=== PATIENT | male | born 1960 | race Caucasian/White ===

== ENCOUNTER → 2017-07-27 11:46 | Outpatient (CLI) | payer OTHER, SELFPAY | PROVIDERS: PCP Family Medicine; Visit Provider Family Medicine | DX: R06.83 Snoring (principal); I10 Essential (primary) hypertension; R53.83 Other fatigue; E66.9 Obesity, unspecified | CPT/HCPCS: 95806 ==

== ENCOUNTER → 2021-05-22 08:30 | Outpatient (CLI) | payer BC, SELFPAY ==
[2021-05-22 10:05] LABS: Basophils # 0.1 K/mm3 (0-0.2); Basophils % 1.4 % (0.1-2.0); Eosinophils # 0.4 K/mm3 (0.0-0.4); Hematocrit 49.1 % (42.0-52.0); Hemoglobin 16.5 g/dL (14.1-18.0); Lymphocytes # 1.7 K/mm3 (0.7-4.5); Mean Corpuscular HGB Conc 33.7 g/dL (31.8-35.4); Mean Corpuscular Hemoglobin 31.1 pg (27.0-31.2); Mean Corpuscular Volume 92.3 fl (80-94); Mean Platelet Volume 7.6 fl (7.4-10.4); Monocytes # 0.7 K/mm3 (0.1-1.0); Monocytes % 9.9 % (1.7-9.3); Neutrophils # 4.4 K/mm3 (1.8-7.8); Neutrophils % 60.6 % (37.0-80.0); Platelet Count 367 K/mm3 (142-424); Red Blood Count 5.32 M/mm3 (4.60-6.20); Red Cell Distribution Width 13.1 % (11.5-17.5); White Blood Count 7.3 K/mm3 (4.8-10.8)
[2021-05-22 10:06] LABS: Chloride 99 mmol/L (98-107); Sodium 135 mmol/L (136-145)
[2021-05-22 10:07] LABS: Potassium 4.6 mmoL/L (3.5-5.1)
[2021-05-22 10:09] LABS: Alanine Aminotransferase 31 U/L (12-78); Albumin Level 4.6 g/dl (3.5-5.0); Albumin/Globulin Ratio 1.8 (1.1-1.8); Alkaline Phosphatase 57 U/L (38-126); Anion Gap 10.6 mEq/L (5-15); Aspartate Amino Transferase 31 U/L (17-59); Bilirubin,Total 0.7 mg/dl (0.2-1.3); Blood Urea Nitrogen 12 mg/dl (9-20); Carbon Dioxide 30 mmol/L (22.0-30.0); Cholesterol 193 mg/dl (140-200); Estimated Glomerular Filt Rate 99 ml/min (>60); GFR (African American) 120 ML/MIN (>60); Globulin 2.6 g/dL (1.3-3.2); Total Protein,Serum 7.2 g/dl (6.3-8.2); Triglycerides 192 mg/dl (30-150); VLDL Cholesterol 38 mg/dL (0-40)
[2021-05-22 10:10] LABS: Calcium 8.8 mg/dl (8.4-10.2); Chol/HDL Ratio 6.4 (1-3.5); Glucose 93 mg/dl (74-100); HDL Cholesterol 30 mg/dl (40-60)
[2021-05-22 10:21] LABS: Direct LDL Cholesterol 125.25 mg/dL (100-129)
[2021-05-22 10:40] LABS: Thyroid Stimulating Hormone 0.37 uIU/mL (0.465-4.68)
== END ==
PROVIDERS: PCP Family Medicine; Referring Provider Family Medicine; Visit Provider Family Medicine
DX: I10 Essential (primary) hypertension (principal); E78.2 Mixed hyperlipidemia
CPT/HCPCS: 36415; 80053; 80061; 84443; 85025

== ENCOUNTER → 2021-06-19 07:59 | Outpatient (CLI) | payer BC, SELFPAY ==
[2021-06-19 08:35] LABS: Basophils # 0.1 K/mm3 (0-0.2); Basophils % 1.4 % (0.1-2.0); Eosinophils # 0.2 K/mm3 (0.0-0.4); Eosinophils % 3.2 % (0.1-12.0); Hematocrit 51.2 % (42.0-52.0); Hemoglobin 16.4 g/dL (14.1-18.0); Lymphocytes # 1.7 K/mm3 (0.7-4.5); Lymphocytes % 22.5 % (10-50); Mean Corpuscular Hemoglobin 30.8 pg (27.0-31.2); Mean Corpuscular Volume 96.1 fl (80-94); Mean Platelet Volume 7.7 fl (7.4-10.4); Monocytes # 0.5 K/mm3 (0.1-1.0); Monocytes % 6.6 % (1.7-9.3); Neutrophils # 4.9 K/mm3 (1.8-7.8); Neutrophils % 66.3 % (37.0-80.0); Platelet Count 355 K/mm3 (142-424); Red Blood Count 5.32 M/mm3 (4.60-6.20); Red Cell Distribution Width 13.5 % (11.5-17.5); White Blood Count 7.3 K/mm3 (4.8-10.8)
[2021-06-19 11:29] LABS: Anion Gap 12.5 mEq/L (5-15); Blood Urea Nitrogen 11 mg/dl (9-20); Calcium 9.1 mg/dl (8.4-10.2); Carbon Dioxide 28 mmol/L (22.0-30.0); Chloride 103 mmol/L (98-107); Estimated Glomerular Filt Rate 99 ml/min (>60); GFR (African American) 120 ML/MIN (>60); Glucose 98 mg/dl (74-100); Potassium 4.5 mmoL/L (3.5-5.1); Sodium 139 mmol/L (136-145)
== END ==
PROVIDERS: Visit Provider Surgery
DX: Z01.812 Encounter for preprocedural laboratory examination (principal); Z11.52 Encounter for screening for COVID-19; K40.90 Unilateral inguinal hernia, without obstruction or gangrene, not specified as recurrent
CPT/HCPCS: 36415; 80048; 85025; C9803; U0003; U0005

== ENCOUNTER 2021-06-21 07:42 | Day surgery (SDC) | payer BC, SELFPAY ==
[2021-06-17 10:11] VITALS: BMI 30.7
[2021-06-21] VITALS (10 sets, daily range): BP systolic 102–142; BP diastolic 55–90; PULSE 64–92; RESP 16–18; TEMP 36.4–43; O2SAT 92–99
--- NOTE | 2021-06-21 09:09 | HMH.ANESCL ---
[facility] Anesthesia Checklist - Patient Identification Patient Identification: Arm Band, Verbal (Name & ) - Structural Data Admitted From: Home Planned Operative Procedure/s: Left Inguinal Hernia Repair Consent for Planned Operative Procedure(s) Verified: Yes Verified Documents: Surgical Consent - NPO Status Verified Time NPO: 00:00 - Chart Verification Results Verified: CBC, BMP - Additional verifications Anesthesia Reactions: No Hx Blood Transfusions: No Blood Transfusion Reaction: No - Airway Assessment C-Spine Mobility Assessed: Yes TMJ Mobility Assessed: Yes Dentition: Edentulous - Neurological Assessment Level of Consciousness: Awake, Alert, Appropriate - Anesthesia Plan Anesthesia Risk discussed: Yes ASA Class: II Anesthesia Type: General [facility] History I have reviewed the patient's past medical history: Yes Medical History: Reports:: Hyperlipidemia Denies:: Cancer, Diabetes Mellitus Type 1, Diabetes Mellitus Type 2, Internal Pacemaker, MRSA, Seizures *Have you ever received a pneumonia vaccine?: No *Have you received a flu vaccine this season?: Yes Other Medical History: Denies: Blood Transfusion Reaction Anesthesia experience/problems:: no issues Other Surgeries: Yes: Other. No: Pacemaker Amputation: No Fractures: No - *Social History Last grade of school completed: GED Smoking Status: Never smoker Alcohol Intake: never Alcohol Intake Frequency:: holidays/special occasions only Substance Use Type: denies use *Occupational Status:: employed Housing: house *Travel in the last 8 weeks: None Family Hx:: Diabetes, Heart Attack, Stroke
--- NOTE | 2021-06-21 12:16 | HMH.OPNOTE ---
Date of procedure: 06/21/21 Pre-op Diagnosis:: Left inguinal hernia Post-op Diagnosis:: Same Procedure performed:: Open repair of left inguinal hernia with placement of large sized Bard prefix mesh plug with onlay mesh Surgeon:: New Martin MD PEANUT CLEANER:: Thai Sahu Anesthesia: GETA Estimated blood loss (mL): 10 Clinical Note:: Patient is a 61-year-old male referred by Dr. Crandall for left inguinal hernia. Patient does state that he had previous hernia repair by Dr. Medina years ago and initially felt that this was on the left side. Patient states that over the past year he has had some discomfort in the left groin area. It is bothersome to him particularly when sneezing or straining. He does have pain when he is standing on his feet at work for long period of time. He does work at [employer]. He often has to sit down. He has to massage the area to reduce it. He was found to have an obvious reducible left inguinal hernia. I did review his previous operative note and he had an open right inguinal hernia repair years ago by Dr. Medina. Options were discussed with the patient. Plan was for open left inguinal hernia repair. Operative findings:: He had a moderate sized indirect hernia with herniated preperitoneal fat along the cord from the internal ring as well as a small hernia sac. Operative note:: Patient was taken to the operating room. He was given preoperative intravenous antibiotics. In the operating room he was placed in a supine position. General anesthesia was induced. Dalal catheter was placed. Lower abdomen and perineum were prepped and draped in the standard surgical fashion. Landmarks were identified. Oblique incision was made in the left inguinal area above landmarks identifying the inguinal ligament. Dissection was carried down to subcutaneous tissues and Nishant's fascia using electrocautery. External oblique muscle was cleaned free. External oblique muscle was opened along the length of its fibers. Ilioinguinal nerve was protected and preserved. Cord structures were dissected free from the floor of the inguinal canal and encircled with a Abdi drain. Dissection was carried out of the cord. There was a indirect hernia with herniated preperitoneal fat along the cord. This was able to be dissected free and some of it was excised but remainder was reduced. There was a hernia sac. This was dissected free from the cord and able to be reduced. Large sized Bard prefix mesh plug was inserted into the region lateral to the external ring at the site of the defect. This was secured to the shelving edge of the inguinal ligament and to external oblique muscle with several interrupted 2-0 PDS sutures. Onlay mesh was then sewn in position securing it to Carmine's ligament and along the shelving edge of the inguinal ligament with a running 2-0 PDS. It was secured superomedially to transversalis fascia with several interrupted 2-0 PDS horizontal mattress sutures. Cord structures were returned to normal anatomic position. The 2 tails of the mesh were used to encircle the cord structures and sutured 1 another several interrupted 2-0 PDS sutures to reconstruct the internal ring. Cord structures and ilioinguinal nerve were returned to normal position. Irrigation was performed. Local anesthetic was infiltrated into the deep tissues and then superficially as well as for an inguinal nerve block. There was good hemostasis. External oblique muscle was closed over the cord structures and nerve with a running 2-0 Vicryl suture. Nishant's fascia was closed with running 2-0 Vicryl. Skin was closed with running 3-0 Stratafix. Steri-Strips and dressings were applied. Condition: stable Disposition: PACU Complications:: None immediately apparent
--- NOTE | 2021-06-21 12:21 | P.PN_ITS ---
[facility] Anesthesia Record Part I Intake, IV Amount: 1,300 Estimated blood loss (mL): 10 Urine output (mL): 100 Blood Pressure: 113/68 SaO2: 92 Pulse Rate: 70 Respiratory Rate: 16 Temperature: 99.1 F Patient is:: Drowsy, Stable Stable to PACU at:: 12:20
--- NOTE | 2021-06-21 12:52 | PC.NURSE ---
1240-detailed report called to JOSE Bennett [id number]-pt transported to post op via stretcher w/subha rails up and left in care of JOSE Bennett,bed locked in lowest position, vss, pt stable
--- NOTE | 2021-06-21 13:58 | HMH.ANESII ---
[facility] Anesthesia Record Part II Discharge Time: 12:50 Destination: Surgical Day Care (OP Surgery) PACU nurse assessment reviewed?: Yes Patient Condition:: Good Anesthesia Complications:: None Swallowing reflex intact?: Yes Cyanosis?: No Blood Pressure: 111/65 Pulse Rate: 67 Temperature: 97.6 F Mental Status: Alert & Oriented Pain level:: 0 Nausea and/or vomitting:: None Intake, IV Amount: 0
[2021-06-21 15:41] LABS: Microscopic,Cath URINE MICROSCOPIC (MICROSCOPIC)
[2021-06-21 18:55] LABS: Appearance,Urine/Cath CLOUDY (Clear); Bilirubin,Cath Negative (Negative); Blood, Urine/Cath Negative (Negative); Color,Urine/Cath YELLOW (Yellow); Glucose,Urine/Cath (UA) Negative (Negative); Ketones,Urine/Cath Negative (Negative); Leukocyte Esterase,Cath Negative (Negative); Nitrate,Cath Negative (Negative); Protein,Urine/Cath Negative (Negative); Specific Gravity, Urine/Cath >= 1.030 (1.005-1.030); Urobilinogen,Cath 0.2 EU/dl (0.2)
[2021-06-21 21:07] LABS: Bacteria,Urine/Cath 4+ /lpf
== END 2021-06-21 13:25 | disposition home or self-care (01) ==
LOC: OR 07:45
PROVIDERS: PCP Family Medicine; Visit Provider Surgery
PROC: (CPT 49507; principal; 2021-06-21 09:30)
DX: K40.30 Unilateral inguinal hernia, with obstruction, without gangrene, not specified as recurrent (principal); E78.5 Hyperlipidemia, unspecified
CPT/HCPCS: 49507; 81001; 87086; 96374; J2405; J2710

== ENCOUNTER → 2021-11-06 08:06 | Outpatient (CLI) | payer BC, SELFPAY ==
[2021-11-06 09:33] LABS: Alanine Aminotransferase 32 U/L (12-78); Albumin Level 4.3 g/dl (3.5-5.0); Albumin/Globulin Ratio 1.6 (1.1-1.8); Alkaline Phosphatase 65 U/L (38-126); Anion Gap 12.5 mEq/L (5-15); Aspartate Amino Transferase 30 U/L (17-59); Bilirubin,Total 0.6 mg/dl (0.2-1.3); Blood Urea Nitrogen 14 mg/dl (9-20); Calcium 9.2 mg/dl (8.4-10.2); Carbon Dioxide 28 mmol/L (22.0-30.0); Chloride 103 mmol/L (98-107); Chol/HDL Ratio 6.6 (1-3.5); Cholesterol 212 mg/dl (140-200); Estimated Glomerular Filt Rate 115 ml/min (>60); GFR (African American) 140 ML/MIN (>60); Globulin 2.7 g/dL (1.3-3.2); Glucose 92 mg/dl (74-100); HDL Cholesterol 32 mg/dl (40-60); Potassium 4.5 mmoL/L (3.5-5.1); Sodium 139 mmol/L (136-145); Triglycerides 157 mg/dl (30-150); VLDL Cholesterol 31 mg/dL (0-40)
[2021-11-06 09:50] LABS: 25-OH Vitamin D, Total 79.6 ng/mL (30-100)
[2021-11-06 09:52] LABS: Free T4 (Free Thyroxine) 0.88 ng/dl (0.78-2.19)
[2021-11-06 10:05] LABS: Thyroid Stimulating Hormone 0.35 uIU/mL (0.465-4.68)
[2021-11-07 10:07] LABS: Direct LDL Cholesterol 136 mg/dL (100-129)
== END ==
PROVIDERS: PCP Family Medicine; Visit Provider Family Medicine
DX: I10 Essential (primary) hypertension (principal); E78.2 Mixed hyperlipidemia; E55.9 Vitamin D deficiency, unspecified; R79.89 Other specified abnormal findings of blood chemistry
CPT/HCPCS: 36415; 80053; 80061; 82306; 84439; 84443

== ENCOUNTER → 2021-12-06 16:46 | Outpatient (CLI) | payer BC, SELFPAY | PROVIDERS: PCP Family Medicine; Visit Provider Surgery | DX: Z01.812 Encounter for preprocedural laboratory examination (principal); Z20.822 Contact with and (suspected) exposure to COVID-19; Z12.11 Encounter for screening for malignant neoplasm of colon | CPT/HCPCS: C9803; U0003; U0005 ==

== ENCOUNTER 2021-12-10 10:16 | Day surgery (SDC) | payer BC, SELFPAY ==
[2021-12-09 08:38] VITALS: BMI 30.8
[2021-12-10 10:48] VITALS: BP 136/80; PULSE 73; RESP 16; TEMP 36.7; O2SAT 99
--- NOTE | 2021-12-10 10:58 | EXP.ANES.CKL ---
[facility] Medical History (Updated 12/09/21 @ 08:35 by Michelle Sousa RN) History of inguinal hernia History of snoring Hypertension Surgical History (Updated 12/09/21 @ 08:35 by Michelle Sousa RN) History of esophagogastroduodenoscopy (EGD) Family History (Updated 12/09/21 @ 08:36 by Michelle Sousa RN) Other Family history of diabetes mellitus type II Family history of hypertension Family history of stroke Social History (Updated 12/09/21 @ 08:37 by Michelle Sousa RN) Smoking Status: Never smoker alcohol intake: never substance use type: denies use current occupational status: employed Travel in the last 8 weeks: None housing: house current occupation: bri caffeine: Yes [facility] Anesthesia Checklist Patient Identification Patient Identification: Arm Band Structural Data Admitted From: Home Planned Operative Procedure/s: Colonoscopy Consent for Planned Operative Procedure(s) Verified: Yes Verified Documents: Surgical Consent and History and Physical NPO Status Verified Time NPO: 00:00 Additional verifications Anesthesia Reactions: No Hx Blood Transfusions: No Blood Transfusion Reaction: No Airway Assessment C-Spine Mobility Assessed: Yes TMJ Mobility Assessed: Yes Dentition: Edentulous Neurological Assessment Level of Consciousness: Awake and Alert Anesthesia Plan Anesthesia Risk discussed: Yes Anesthesia Plan: Verified ASA Class: II Anesthesia Type: MAC
[2021-12-10 12:19] VITALS: O2SAT 97
--- NOTE | 2021-12-10 12:59 | HMH.SCOPE ---
Procedure: Date: 12/10/21 Patient Date of :: 1960 Procedure Performed:: Total colonoscopy to terminal ileum with polypectomy Indications:: Patient is a pleasant 61-year-old male who I had previously seen for hernia. He was scheduled for initial screening colonoscopy. Performing Provider:: New Martin MD Referring Provider:: Rogers Crandall MD Sedation:: MAC sedation Procedure:: Patient was taken to endoscopy procedure room. He was positioned in lateral decubitus position. Adequate intravenous sedation was achieved with anesthesia titration of propofol. Variable stiffness Olympus colonoscope was inserted via the anus. Is advanced to the cecum. Ileocecal valve and appendiceal orifice were clearly identified. Colonoscope was advanced a short distance into the terminal ileum which appeared grossly normal. Colonoscope was slowly withdrawn through the colon with careful surveillance. At the hepatic flexure there were several tiny diminutive polyps removed with cold snare. Within the transverse colon there were 3 small polyps removed with cold snare. In the sigmoid colon there was a small polyp removed with cold snare. He had some minimal sigmoid diverticulosis. Retroflexion within the rectum revealed minimal internal hemorrhoids. Colonoscope was withdrawn. Findings:: Rare sigmoid diverticulosis Minimal internal hemorrhoids Polyps as noted above (total of 7 small polyps removed) Recommendations:: Repeat colonoscopy pending pathology Complications:: None immediately apparent Estimated blood obtained (mL): 2
[2021-12-10 13:06] VITALS: BP 119/70; PULSE 72; RESP 18; TEMP 36.4; O2SAT 97
[2021-12-10 13:16] VITALS: BP 120/77; PULSE 65; RESP 18; TEMP 36.4; O2SAT 98
[2021-12-10 13:26] VITALS: BP 124/79; PULSE 65; RESP 18; TEMP 36.4; O2SAT 99
[2021-12-10 13:45] VITALS: BP 122/90; PULSE 64; RESP 18; TEMP 36.4; O2SAT 99
== END 2021-12-10 13:45 | disposition home or self-care (01) ==
PROVIDERS: PCP Family Medicine; Visit Provider Surgery
PROC: 0DJD8ZZ Inspection of Lower Intestinal Tract, Via Natural or Artificial Opening Endoscopic (ICD-10-PCS; CPT 45385; principal; 2021-12-10 11:30)
DX: Z12.11 Encounter for screening for malignant neoplasm of colon (principal); D12.6 Benign neoplasm of colon, unspecified; Z86.010 Personal history of colon polyps; Z79.899 Other long term (current) drug therapy
CPT/HCPCS: 45385; J2704

== ENCOUNTER 2025-02-03 12:09 | Day surgery (SDC) | payer BC, SELFPAY ==
[2025-01-29 09:23] VITALS: BMI 30.2
--- NOTE | 2025-01-31 15:46 | P.HP_ITS ---
History of Present Illness *Admission Date: 02/03/25 *History of present illness: Mr. Pelletier is a 64-year-old gentleman who is here for screening/surveillance colonoscopy secondary to a personal history of adenomatous colon polyps. The patient did have an initial colonoscopy in November 2021 and had 7 polyps (tu bular adenomas x 7) removed (New Martin MD). The examination is deemed medically necessary for screening/surveillance colonoscopy. The patient has been seen, interviewed and examined prior to the procedure by both myself and the anesthesia provider. [facility] Disclaimer: The information contained in this section may have been updated after the patient was seen, as this information can be updated by other users. 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 Have you lived/traveled outside US in past 30 days?: No Contact w/someone who lives/traveled outside US past 30 days?: No Exposure to someone with infectious disease in past 14 days?: No Do you have a fever (greater than 100.4 F or 38 C)?: No Have you tested positive for COVID-19?: No Exposed to someone with COVID-19 in past 14 days?: No Do you have a sore throat?: No Do you have a cough?: No Do you have any weakness?: No Are you experiencing any nausea/vomitting?: No Do you have any diarrhea?: No Are you experiencing any unusual bleeding?: No Do you have any muscle aches/pain?: No Do you have any abdominal pain?: No Are you experiencing loss of taste or smell?: No Other Medical History Have you received the Flu Vaccine for this season: Yes Have you received the Pneumonia Vaccine: No Review of Systems Review of Systems Review of systems (narrative): Negative *Cardiovascular Comments: Negative *Gastrointestinal Comments: Negative *Genitourinary Comments: Negative *Musculoskeletal Comments: Negative *Neurologic Comments: Negative Meds Home Medications and Allergies Home Medications ?Medication ?Instructions ?Recorded ?Confirmed ?Type cholecalciferol (vitamin D3) 25 25 mcg PO DAILY Supple ment 06/08/21 02/03/25 History mcg (1,000 unit) capsule hydrochlorothiazide 12.5 mg tablet 12.5 mg PO DAILY Fl uid 06/08/21 02/03/25 History losartan 100 mg tablet 100 mg PO DAILY bp 06/08/21 02/03/25 History multivitamin-ferrous 1 tab PO DAILY Supplement 02/03/25 History fumarate-folic acid 18 mg-400 mcg tablet (Centrum) New Prescriptions to Start Prescriptions: Allergies Allergy/AdvReac Type Severity Reaction Status Date / Time cephalexin (From Keflex) Allergy Unknown Unknown Verified 02/03/25 12:24 allergy reaction Penicillins Allergy Unknown Unknown Verified 02/03/25 12:24 allergy reaction Exam Data for Last 24 hours I & O for Last 24 hours: Intake & Output 01/28/25 01/29/25 01/30/25 01/31/25 23:59 23:59 23:59 23:59 Weight 205 lb *Routine HEENT Exam Head: Present normocephalic Eye: Present EOMI and PERRL ENT: Present mucous membranes moist *Routine Neck Exam Neck: Present supple *Routine Respiratory Exam Respiratory: Present CTA bilaterally *Routine Cardiovascular Exam Cardiovascular: Present RRR *Routine Abdominal Exam Abdominal: Present soft and normoactive bowel sounds; Absent tenderness *Routine Rectal Exam Rectal:: deferred *Routine Genitalia Exam Genitalia:: deferred *Routine Extremities Exam Extremities: Absent cyanosis, clubbing or edema *Routine Skin Exam Skin: Present warm; Absent rash *Routine Neurological Exam Neurological: Present alert and oriented X3 Assessment and Plan *Assessment and plan (1) Personal history of adenomatous and serrated colon polyps: Status: Acute Category: Medical Code(s): Z86.0101 - Personal history of adenomatous and serrated colon polyps (2) Screening for colon cancer: Status: Acute Category: Medical Code(s): Z12.11 - Encounter for screening for malignant neoplasm of colon Plan A/P: 1. Personal history of adenomatous colon polyps is the preprocedural diagnosis. The patient will be anesthetized/sedated using MAC sedation. The patient has been seen and examined. Cardiac and lung assessment prior to the examination is stable. Proceed with planned screening for colon cancer/screening colonoscopy.
--- NOTE | 2025-02-03 07:05 | HMH.PROCNOTE ---
[facility] Procedure Note Date: 02/03/25 Time: 13:41 Procedure Note:: Colonoscopy Procedure Report: Colonoscopy with cold snare polypectomy Endoscopist: Topher Wade II, MD Referring physician: Rogers Crandall MD Date of Procedure: February 03, 2025 Equipment: Olympus [id number] adult colonoscope Sedation: MAC sedation Indication: Mr. Pelletier is a 64-year-old gentleman who is here for screening/surveillance colonoscopy secondary to a personal history of adenomatous colon polyps. The patient did have an initial colonoscopy in November 2021 and had 7 polyps (tubular adenomas x 7) removed (New Martin MD). The patient reports no abdominal pain, weight loss, change in his bowel habits or rectal bleeding. He reports no family history of colon cancer. He does sometimes get loose bowel movements if he eats or drinks dairy products. The examination is deemed medically necessary for screening/surveillance colonoscopy. Procedure: Prior to the procedure, a history and physical exam was performed, and patient's medications and allergies were reviewed. The risks, benefits and alternatives of the sedation and procedure were discussed with the patient. All questions were answered and informed consent was obtained. The patient was brought to the procedure room. Patient identification and proposed procedure were verified by the physician and the nurse. The patient was placed in a left lateral decubitus position and the scope was passed under direct vision. Throughout the procedure, the patient's blood pressure, pulse, and oxygen saturations were monitored continuously. The colonoscopy was accomplished without difficulty. The patient tolerated the procedure well. Findings: On digital rectal examination there was normal rectal tone. There were no external hemorrhoids. The colonoscope was introduced through the anal canal to the rectum and advanced to the cecum. The ileocecal valve and appendiceal orifice were identified. The scope was advanced a short distance into the ileum which appeared grossly normal. The scope was then withdrawn into the colon. There were 4 diminutive polyps (cecum x 2 (3 and 7 mm) and descending x 2 (3 and 4 mm)). These were all removed via cold snare polypectomy. The remaining cecum, ascending and transverse colon and mucosa were grossly normal. There were very mildly scattered shallow diverticuli in the distal descending and sigmoid colon. The rectum itself was normal. Upon retroflexion within the rectum there were grade 2 internal hemorrhoids. The preparation was excellent throughout with [place] Preparation Score of 9. The cecal time was 12 minutes. Impression: 1. Diminutive colonic polyps x 4 2. Mild sigmoid diverticulosis 3. Grade 2 internal hemorrhoids Plan: I will follow-up the polyp histology and recommend repeat screening/surveillance colonoscopy again in 5 years. I would encourage psyllium bulking fiber supplementation on a maintenance basis.
[2025-02-03 12:25] VITALS: BP 164/87; PULSE 88; RESP 18; TEMP 36.3; O2SAT 96
[2025-02-03] MEDS: LACTATED RINGERS 1000ML 1,000 ML 50 ML IV (12:32)
--- NOTE | 2025-02-03 13:12 | EXP.ANES.CKL ---
[facility] Disclaimer: The information contained in this section may have been updated after the patient was seen, as this information can be updated by other users. 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 Have you lived/traveled outside US in past 30 days?: No Contact w/someone who lives/traveled outside US past 30 days?: No Exposure to someone with infectious disease in past 14 days?: No Do you have a fever (greater than 100.4 F or 38 C)?: No Have you tested positive for COVID-19?: No Exposed to someone with COVID-19 in past 14 days?: No Do you have a sore throat?: No Do you have a cough?: No Do you have any weakness?: No Are you experiencing any nausea/vomitting?: No Do you have any diarrhea?: No Are you experiencing any unusual bleeding?: No Do you have any muscle aches/pain?: No Do you have any abdominal pain?: No Are you experiencing loss of taste or smell?: No [facility] Anesthesia Checklist Patient Identification Patient Identification: Arm Band Structural Data Admitted From: Home Planned Operative Procedure/s: Colonoscopy Consent for Planned Operative Procedure(s) Verified: Yes Verified Documents: Surgical Consent and History and Physical NPO Status Verified Time NPO: 00:00 Additional verifications Anesthesia Reactions: No Hx Blood Transfusions: No Blood Transfusion Reaction: No Airway Assessment Mallampati Score:: Class II C-Spine Mobility Assessed: Yes TMJ Mobility Assessed: Yes Dentition: Dentures-good fit (removed) Neurological Assessment Level of Consciousness: Awake, Alert and Appropriate Anesthesia Plan Anesthesia Risk discussed: Yes Anesthesia Plan: Verified ASA Class: II Anesthesia Type: MAC
[2025-02-03 13:41] VITALS: BP 135/71; PULSE 81; RESP 18; TEMP 36.2; O2SAT 94
[2025-02-03 13:56] VITALS: BP 128/78; PULSE 77; RESP 18; O2SAT 95
[2025-02-03 14:11] VITALS: BP 122/69; PULSE 79; RESP 18; O2SAT 96
== END 2025-02-03 14:11 | disposition home or self-care (01) ==
PROVIDERS: PCP Family Medicine; Visit Provider Internal Medicine Gastroenterology
PROC: 0DJD8ZZ Inspection of Lower Intestinal Tract, Via Natural or Artificial Opening Endoscopic (ICD-10-PCS; CPT 45378; principal; 2025-02-03 13:30)
DX: Z12.11 Encounter for screening for malignant neoplasm of colon (principal); D12.0 Benign neoplasm of cecum; D12.4 Benign neoplasm of descending colon; K57.30 Diverticulosis of large intestine without perforation or abscess without bleeding; K64.1 Second degree hemorrhoids; I10 Essential (primary) hypertension; Z88.0 Allergy status to penicillin; Z88.1 Allergy status to other antibiotic agents; Z86.0101 Personal history of adenomatous and serrated colon polyps
CPT/HCPCS: 45385; J2003; J2704; J7120